=== PATIENT | female | born 1965 | race American Indian/Alaskan Native ===

== ENCOUNTER → 2024-03-25 | Outpatient (CLI) | payer OTHER | END | disposition home or self-care (01) | LOC: RAH 09:07 | PROVIDERS: ATTEND Internal Medicine Cardiovascular Disease | DX: Z13.6 Encounter for screening for cardiovascular disorders (principal) | CPT/HCPCS: 75571 ==

== ENCOUNTER → 2024-07-14 | Outpatient (CLI) | payer BC ==
--- NOTE | 2024-07-14 10:30 | HMCIMG ---
CT LUMBAR SPINE W/O CONTRAST HISTORY: Psoriasis COMPARISON: None TECHNIQUE: Multiple sequential axial images of the lumbar spine were obtained including post processing sagittal and coronal reconstruction images. Patient was not given contrast through intravenous route. FINDINGS: There is no loss of vertebral height. Evaluation for disc and cord pathology is limited with CT study. No evidence of fracture or dislocation is seen. Mild facet hypertrophy changes are noted at L4 and L5 levels. Mild degenerative changes are seen with spondylosis. IMPRESSION: 1. No fracture is seen. Mild DJD with mild facet hypertrophy at L4 and L5 levels. CT was performed with one or more following dose reduction techniques: automated exposure control, adjustment of the mA and kv according to patient's size, or use of a iterative reconstruction technique.
== END | disposition home or self-care (01) ==
LOC: RAH 07-07 12:40
PROVIDERS: ATTEND Physical Medicine & Rehabilitation
DX: M47.816 Spondylosis without myelopathy or radiculopathy, lumbar region (principal)
CPT/HCPCS: 72131

== ENCOUNTER → 2024-09-30 | Outpatient (CLI) | payer BC ==
--- NOTE | 2024-09-30 11:41 | HMCIMG ---
LUMBAR SPINE 4+VWS HISTORY: Spondylolisthesis COMPARISON: None FINDINGS: 4 images of lumbar spine were obtained including flexion and extension views. Grade 1 anterolisthesis is seen at the L4-5 level. There is scoliosis. There is straightening of normal lordotic curvature which may be related to muscle spasm or positioning. No loss of vertebral height is seen. No fracture or dislocation is seen. Degenerative changes are seen. IMPRESSION: 1. No fracture is seen. Grade 1 anterolisthesis at L4-5 level. Scoliosis
--- NOTE | 2024-09-30 11:45 | HMCIMG ---
PELVIS 1-2VWS HISTORY: Status post fall COMPARISON: None TECHNIQUE: 2 images of pelvis were obtained. FINDINGS: There is no acute displaced fracture or dislocation. Bilateral hip joint space narrowing is seen.. Degenerative changes are seen. IMPRESSION: 1. Findings as described above.
== END | disposition home or self-care (01) ==
LOC: RAH 09:20
PROVIDERS: ATTEND Physical Medicine & Rehabilitation
DX: M47.816 Spondylosis without myelopathy or radiculopathy, lumbar region (principal); M19.09 Primary osteoarthritis, other specified site; M41.86 Other forms of scoliosis, lumbar region; M43.16 Spondylolisthesis, lumbar region; Z88.0 Allergy status to penicillin; W19.XXXA Unspecified fall, initial encounter
CPT/HCPCS: 72110; 72170